=== PATIENT | female | born 1995 | race Caucasian/White ===

== ENCOUNTER → 2018-01-12 09:15 | Outpatient (CLI) | payer OTHER, SELFPAY ==
--- NOTE | 2018-01-12 09:15 | DT_ITS ---
This patient was seen during an EMR downtime January 08, 2018 - January 15, 2018. This patient may have a combination of paper and electronic documentation or all paper documentation. All documentation is viewable within the e-chart portion of [facility] for each patient visit.
[2018-01-16 15:58] LABS: Glucose Challenge Gest 1H 50g 102 mg/dL (70-140)
[2018-01-16 16:07] LABS: Hemoglobin 12.2 g/dl (12.0-15.0); Mean Corpuscular Hgb 31.8 pg (27.0-32.0); Mean Corpuscular Volume 96.4 fL (81-99); Platelet Count 154 K/mm3 (150-450); RBC Distribution Width CV 11.7 % (11.6-14.6); RBC Distribution Width SD 39.8 fl (35.1-43.9); Red Blood Count 3.84 M/mm3 (4.2-5.4); Scan Indicated on CBC? Y/N NO; White Blood Count 8.3 K/mm3 (4.4-11.0)
== END ==
PROVIDERS: Visit Provider Obstetrics & Gynecology
DX: Z34.83 Encounter for supervision of other normal pregnancy, third trimester (principal)
CPT/HCPCS: 36415; 82950; 85027

== ENCOUNTER → 2018-03-14 13:46 | Outpatient (CLI) | payer OTHER, SELFPAY ==
[2018-03-14 18:30] LABS: Group B Strep DNA By PCR Negative (Negative); Internal Control PASS; Probe Check PASS; Specimen Processing Control PASS
== END ==
PROVIDERS: Visit Provider Obstetrics & Gynecology
DX: Z36.85 Encounter for antenatal screening for Streptococcus B (principal)
CPT/HCPCS: 87081; 87653

== ENCOUNTER 2018-03-29 17:10 | Inpatient (IN) | payer OTHER, SELFPAY ==
[2018-03-29 15:51] VITALS: BMI 32.2
[2018-03-29 16:22] LABS: ROM Internal Control Test YES-OK TO RESULT pt. (Internal QC)
[2018-03-29 16:25] LABS: ROM Patient Test POSITIVE (Negative)
[2018-03-29] MEDS: Lactated Ringers 1,000 ML 50 ML IV ×2 (17:00→22:01)
[2018-03-29 17:51] LABS: Hematocrit 38.2 % (37-47); Hemoglobin 12.1 g/dl (12.0-15.0); Mean Corp Hgb Conc 31.7 g/gl (32-36); Mean Corpuscular Hgb 28.9 pg (27.0-32.0); Mean Corpuscular Volume 91.2 fL (81-99); Mean Platelet Vol. 10.6 fl (6.2-12.0); Platelet Count 148 K/mm3 (150-450); RBC Distribution Width SD 42.5 fl (35.1-43.9); Red Blood Count 4.19 M/mm3 (4.2-5.4); White Blood Count 12.3 K/mm3 (4.4-11.0)
[2018-03-29 18:56] LABS: Scan Indicated on CBC? Y/N NO
[2018-03-29] MEDS: Oxytocin 30 units/NS 500 ml 30 UNITS/500 ML IV.SOLN IV (18:56)
--- NOTE | 2018-03-30 01:24 | PCM.PN.BLA ---
Progress Note LABOR PROGRESS NOTE Contractions more intense, /. AVSS GEN - NAD, AAO x 3 SVE 3/75/-3, moderate and midposition FHR 120, moderate variability, + accelerations, no decelerations TOCO 2/10 min A/P: 23yo G1 at 39 1/7wga with Cat I FHR with PROM, Cat I FHR -Continue pitocin as tolerated by mother and fetus -Forebag ruptured -Maternal and statuses reassuring
[2018-03-30] MEDS: Acetaminophen 325 MG Tablet PO (01:26)
[2018-03-30] MEDS: Nalbuphine 10 MG/ML Ampul IV (01:56)
[2018-03-30] MEDS: Ondansetron 4 MG/2 ML Vial IV ×2 (01:57→10:41)
[2018-03-30] MEDS: Lactated Ringers 1,000 ML 50 ML IV ×2 (03:08→06:29)
[2018-03-30] MEDS: fentaNYL-bupivacaine (epidural) 100 ML BAG EPIDURAL ×3 (03:51→12:14)
--- NOTE | 2018-03-30 07:14 | PCM.PN.BLA ---
Progress Note LABOR PROGRESS NOTE SROM comfortable w/ epidural AVSS Pitocin induction after SROM EFM 120-130s with avg variability. Accels noted. UCs q 2-3 min CX; 9.5/100/0 per RN check just done. A/P: Induction of labor after SROM at 39 3/7 wk continue pitocin anticipate .
--- NOTE | 2018-03-30 12:34 | PCM.PN.BLA ---
Progress Note LABOR PROGRESS NOTE Complete and pushing since about 9 am. AVSS Able to see VTX at perineum FM: 140-150s with avg variability, accels. Variables and early decelerations. Category I to II tracing. Progress being made. UCs q 2-4 mins A/P: SROM at 39+ wk, Induction for SROM. Progression to C and P. Continue pushing Anticipate .
[2018-03-30] MEDS: Oxytocin 30 units/NS 500 ml 30 UNITS/500 ML IV.SOLN 334 UNITS IV (13:20)
[2018-03-30] MEDS: Ketorolac 30 MG/ML Syringe IV (13:25)
--- NOTE | 2018-03-30 13:32 | PCM.DCVAG ---
Discharge Diet: No Restrictions Discharge Activity: May Shower, May Take a Tub Bath May resume sexual activity in: 4-6 weeks Additional Activity Instructions:: Nothing in the vagina for 4-6 weeks. You may return to work/school in 6 weeks. Additional Instructions: If you experience any of the following, contact your healthcare provider. Bleeding that soaks a pad every hour for 2 hours Fever 100.4 or higher Unrelieved abdominal pain Problems urinating (including inability to urinate or burning while urinating). Visual changes Severe headache Flu-like symptoms Pain or redness in one of both of your breasts Pain, warmth, tenderness or swelling in your legs, especially the calf area Frequent nausea and vomiting Symptoms of depression or anxiety If you experience any of the following, call 911 or go to the nearest Emergency Room. Chest pain Problems breathing Seizure activity Partial or complete paralysis of a body part, slurred speech, weakness or drooping of the face, or a sudden inability to walk or hold your balance Allergies/Adverse Reactions: Allergies No Known Allergies Allergy (Verified 03/29/18 15:55) Medications to take at Discharge Ondansetron HCl [Zofran] 4 mg PO 03/29/18 Vits [Prenatabs FA] 1 tablet PO DAILY 03/29/18 Please Follow Up With: Paige oCles MD - [phone] When: Call to make an appointment with your doctor in 6 weeks. Primary Care Physician: Lucie Montejo MD [Primary Care Provider] - Test Results: Test results from this visit will be discussed in further detail at your follow-up appointment, if applicable. Proposed Discharge Date: 04/01/18
[2018-03-30] MEDS: Oxytocin 30 units/NS 500 ml 30 UNITS/500 ML IV.SOLN 167 UNITS IV (13:50)
[2018-03-30] MEDS: Methylergonovine 0.2 MG/ML Ampul IM (14:10)
--- NOTE | 2018-03-30 17:02 | PCM.OB.VAG ---
Vaginal Delivery Maternal Presentation: Spontaneous Rupture of Membranes 39 2/7 wk EGA SROM Method of Induction: Pitocin Medical Reason for Induction: Premature Rupture of Membranes Amniotic Membrane Rupture Type: Spontaneous at home Amniotic Fluid Description: Clear Final TWYLA: 04/04/18 Final TWYLA Source: US <20 weeks Gestational age: 39 Weeks and 2 Days Date of Procedure: 03/30/18 Pre-Operative Diagnosis: 39 2/7 wk SROM Post-Operative Diagnosis: Same Surgery/ Procedure Performed: Vacuum Assisted Vaginal Delivery - secondary to maternal exhaustion.. Type of Anesthesia: Epidural Description of Procedure: Vacuum assisted vaginal delivery at +2 station, mckeon in place, Epidural in place and pushing for more than 4 hrs. Single pull on vacuum in green zone resulted in vaginal delivery of a magallon viable male. Ap 8/9 Head delivered KIP. Vacuum removed, no nuchal cord. OP and nares bulb suctioned on perineum. Shoulders delivered easily with R hand at chin reduced at delivery. Infant to maternal abdomen with spontaneous cry. Delayed cord clamped employed. Cord clamped x two and cut. PP exam: 2nd degree vaginal to perineal laceration, repaired to hemostatic, intact under epidural and 1% lidocaine local with 3-0 Vicryl. NO other lacerations noted. Placenta delivered by spont expulsion, expression. 3V cord, normal appearing, intact with trailing membranes. Mild uterine atony noted without hemorrhage, responded to massage, pitocin. Toradol given for maternal CC of cramping pain. Methergine 0.2 mg IM x one given in R thigh as prophylactic measure 2/2 prolonged SROM and pt in labor on Pitocin all night prior to delivery. Presentation: Vertex, KIP Placental Delivery Description: Spontaneous, Expressed Placenta Disposition: [facility] Cord Vessel Description: 3 Vessels Cord Entanglement: None Drain: Mckeon to straight drain Estimated Blood Loss: 300 A gender: Male (1 minute): 8 (5 minute): 9 Episiotomy Description: None Laceration: Midline, Perineal Extension/lac, Vaginal Extension/lac, 2nd degree Medications given after delivery: IV Pitocin, IM Methergin Complications: None
[2018-03-30 20:00] VITALS: BP 129/82; PULSE 97; RESP 18; TEMP 36.4; O2SAT 99
[2018-03-31] VITALS: BP 126/79; PULSE 89; RESP 16; TEMP 36.8; O2SAT 98
[2018-03-31] MEDS: Ibuprofen 600 MG Tablet PO ×2 (07:36→16:52)
[2018-03-31] MEDS: Senna/Docusate Sodium 1 Tablet PO (07:37)
[2018-03-31 08:00] VITALS: BP 122/78; PULSE 88; RESP 18; TEMP 36.1
--- NOTE | 2018-03-31 09:33 | PCM.PN.OB ---
Subjective: Patient without complaints. Tolerating diet well. Minimal vaginal bleeding. Breast-feeding going well. Baby with occasional low blood sugar. - Physical Exam Vital Signs Temp Pulse Resp BP Pulse Ox 98.3 F 89 16 126/79 H 98 03/31/18 00:00 03/31/18 00:00 03/31/18 00:00 03/31/18 00:00 03/31/18 00:00 Oxygen Delivery Method Room Air Weight: 176 lb 2.389 oz Body Mass Index (BMI) 32.2 Intake and Output for Last 24 Hours 03/29/18 03/30/18 03/31/18 23:59 23:59 23:59 Intake Total 6772 / 6772 Output Total 600 / 600 1675 / 1675 1700 / 1700 Balance -600 / -600 5097 / 5097 -1700 / -1700 Laboratory Tests Past 24 Hrs 03/30/18 07:40 Blood Type A POSITIVE Antibody Screen NEGATIVE Medical Necessity - Tobacco Use Smoking Status: Never smoker Assessment/Plan Doing well. Continuing present care.
[2018-03-31 12:00] VITALS: BP 119/80; PULSE 82; RESP 18; TEMP 36.2
[2018-03-31] MEDS: Acetaminophen 500 MG Tablet 1000 MG PO ×2 (12:48→22:01)
[2018-03-31] MEDS: Prenatal Vits Tablet 1 TABLET PO (12:49)
[2018-03-31 16:00] VITALS: BP 125/80; PULSE 93; RESP 18; TEMP 36.1
[2018-03-31 20:25] VITALS: BP 132/86; PULSE 88; RESP 16; TEMP 36.4; O2SAT 99
[2018-04-01 03:00] VITALS: BP 111/71; PULSE 74; RESP 16; TEMP 36.6; O2SAT 100
[2018-04-01 08:30] VITALS: BP 120/80; PULSE 88; RESP 18; TEMP 36.3
[2018-04-01] MEDS: Senna/Docusate Sodium 1 Tablet PO (08:31)
[2018-04-01] MEDS: Ibuprofen 600 MG Tablet PO (08:32)
[2018-04-01] MEDS: Prenatal Vits Tablet 1 TABLET PO (08:33)
--- NOTE | 2018-04-01 11:05 | PCM.PN.OB ---
Subjective: Patient without complaints. Breast-feeding going well. Ready to go home. - Physical Exam Vital Signs Temp Pulse Resp BP Pulse Ox 97.4 F L 88 18 120/80 100 04/01/18 08:30 04/01/18 08:30 04/01/18 08:30 04/01/18 08:30 04/01/18 03:00 Oxygen Delivery Method Room Air Weight: 176 lb 2.389 oz Body Mass Index (BMI) 32.2 Intake and Output for Last 24 Hours 03/30/18 03/31/18 04/01/18 23:59 23:59 23:59 Intake Total 6772 / 6772 Output Total 1675 / 1675 1700 / 1700 Balance 5097 / 5097 -1700 / -1700 Medical Necessity - Tobacco Use Smoking Status: Never smoker Assessment/Plan Doing well day #2. Will release to home with routine instructions.
[2018-04-01 11:45] VITALS: BP 120/80; PULSE 88; RESP 18; TEMP 36.3
== END 2018-04-01 11:45 | disposition home or self-care (01) | DRG 774 ==
LOC: WPOUT 17:10 → WP 17:17
PROVIDERS: Obstetrics & Gynecology; Admitting Provider Obstetrics & Gynecology; Family Provider Family Medicine; PCP Family Medicine; Visit Provider Obstetrics & Gynecology
DX: O42.92 Full-term premature rupture of membranes, unspecified as to length of time between rupture and onset of labor (principal); O72.1 Other immediate postpartum hemorrhage; O75.81 Maternal exhaustion complicating labor and delivery; O70.1 Second degree perineal laceration during delivery; O76 Abnormality in fetal heart rate and rhythm complicating labor and delivery; Z3A.39 39 weeks gestation of pregnancy; Z37.0 Single live birth
CPT/HCPCS: 59025; 59050; 84112; 85027; 86850; 86900; 99218; J7120; G0378; J2405

== ENCOUNTER → 2019-04-16 13:42 | Outpatient (CLI) | payer OTHER, SELFPAY | PROVIDERS: Visit Provider Obstetrics & Gynecology | DX: Z34.81 Encounter for supervision of other normal pregnancy, first trimester (principal); Z12.4 Encounter for screening for malignant neoplasm of cervix; Z11.3 Encounter for screening for infections with a predominantly sexual mode of transmission ==

== ENCOUNTER → 2019-04-17 09:13 | Outpatient (CLI) | payer OTHER, SELFPAY ==
[2019-04-17 11:31] LABS: hCG Titer Quant., Serum 1543 mIU/mL (1-3)
== END ==
PROVIDERS: Visit Provider Obstetrics & Gynecology
DX: O20.0 Threatened abortion (principal)
CPT/HCPCS: 36415; 84702

== ENCOUNTER → 2019-04-19 09:16 | Outpatient (CLI) | payer OTHER, SELFPAY ==
[2019-04-19 11:24] LABS: hCG Titer Quant., Serum 350 mIU/mL (1-3)
== END ==
PROVIDERS: Visit Provider Obstetrics & Gynecology
DX: O20.0 Threatened abortion (principal); Z3A.00 Weeks of gestation of pregnancy not specified
CPT/HCPCS: 36415; 84702

== ENCOUNTER → 2020-09-22 13:24 | Outpatient (CLI) | payer OTHER, SELFPAY ==
[2020-09-25 03:07] LABS: Chlamydia By Nucleic Acid AMP Negative (Negative)
[2020-09-25 11:13] LABS: Gonococcus By Nucleic Acid AMP Negative (Negative)
== END ==
PROVIDERS: Visit Provider Student in an Organized Health Care Education/Training Program
DX: Z32.01 Encounter for pregnancy test, result positive (principal); Z11.3 Encounter for screening for infections with a predominantly sexual mode of transmission
CPT/HCPCS: 87491; 87591

== ENCOUNTER → 2020-10-06 10:09 | Outpatient (CLI) | payer OTHER, SELFPAY ==
[2020-10-06 11:34] LABS: hCG Titer Quant., Serum 3 mIU/mL (1-3)
[2020-10-06 11:40] LABS: Free T3 2.9 pg/mL (2.18-3.98); T4 Free Direct 0.88 ng/dL (0.76-1.46); Thyroid Stim Hormone (TSH) 2.21 uIU/mL (0.358-3.74)
[2020-10-08 05:06] LABS: Dilute Prothrombin Time (dPT) 35.1 sec (0.0-55.0); Dilute Russell Viper Venom 40.5 sec (0.0-47.0); PTT-LA 33.7 sec (0.0-51.9); Thrombin Time 16.1 sec (0.0-23.0); dPT Confirm Ratio 0.98 Ratio (0.00-1.40)
[2020-10-08 08:30] LABS: Anti-Cardiolipin Ab, IgA, Qn < 9 APL U/mL (0-11); Anti-Cardiolipin Ab, IgG, Qn < 9 GPL U/mL (0-14); Anti-Cardiolipin Ab, IgM, Qn 13 MPL U/mL (0-12); Beta-2-Glycoprotein I IgA <9 (0-25); Beta-2-Glycoprotein I IgG <9 (0-20); Beta-2-Glycoprotein I IgM <9 (0-32)
[2020-10-08 08:47] LABS: Interpretation Comment: (.)
== END ==
PROVIDERS: Visit Provider Student in an Organized Health Care Education/Training Program
DX: O03.9 Complete or unspecified spontaneous abortion without complication (principal); O26.20 Pregnancy care for patient with recurrent pregnancy loss, unspecified trimester; Z3A.00 Weeks of gestation of pregnancy not specified
CPT/HCPCS: 36415; 84439; 84443; 84481; 84702; 86146; 86147

== ENCOUNTER → 2020-11-12 16:23 | Outpatient (CLI) | payer OTHER, SELFPAY ==
[2020-11-12 17:59] LABS: hCG Titer Quant., Serum 21 mIU/mL (1-3)
== END ==
PROVIDERS: Visit Provider Student in an Organized Health Care Education/Training Program
DX: O20.0 Threatened abortion (principal)
CPT/HCPCS: 36415; 84702

== ENCOUNTER → 2020-11-14 09:22 | Outpatient (CLI) | payer OTHER, SELFPAY ==
[2020-11-14 10:35] LABS: hCG Titer Quant., Serum 7 mIU/mL (1-3)
== END ==
PROVIDERS: PCP Family Medicine; Visit Provider Student in an Organized Health Care Education/Training Program
DX: O20.0 Threatened abortion (principal); Z3A.00 Weeks of gestation of pregnancy not specified
CPT/HCPCS: 36415; 84702

== ENCOUNTER → 2021-01-14 10:18 | Outpatient (CLI) | payer OTHER, SELFPAY ==
[2021-01-16 10:06] LABS: Beta-2-Microglobulin, S 1.3 mg/L (0.6-2.4)
[2021-01-16 16:07] LABS: Dilute Prothrombin Time (dPT) 34.5 sec (0.0-55.0); Dilute Russell Viper Venom 40.5 sec (0.0-47.0); Thrombin Time 15.7 sec (0.0-23.0); dPT Confirm Ratio 1.08 Ratio (0.00-1.40)
[2021-01-16 20:12] LABS: Anti-Cardiolipin Ab, IgG, Qn < 9 GPL U/mL (0-14); Anti-Cardiolipin Ab, IgM, Qn < 9 MPL U/mL (0-12); Interpretation Comment: (.)
== END ==
PROVIDERS: PCP Family Medicine; Visit Provider Student in an Organized Health Care Education/Training Program
DX: N96 Recurrent pregnancy loss (principal)
CPT/HCPCS: 36415; 82232; 86147

== ENCOUNTER → 2021-06-10 11:42 | Outpatient (CLI) | payer OTHER, SELFPAY ==
--- NOTE | 2021-06-10 11:50 | RAD_ITS ---
STUDY: HYSTEROSALPINGOGRAM. REASON FOR EXAM: Female, 26 years old. RECURRENT LOSS, TUBAL PATENCY FLUOROSCOPY TIME (if supplied): ( 59 seconds ) minutes/seconds. 2 images were obtained. TECHNIQUE: Hysterosalpingogram was performed by the oil field equipment mechanic. Imaging was obtained. COMPARISON: None. FINDINGS: The uterus is unremarkable. Both fallopian tubes are patent and there is evidence of free spill. RAD/Salpingogram IMPRESSION: Patency of both fallopian tubes. The uterus is unremarkable. Electronically Signed: Adriano Gregorio MD at 13:16 EDT , Service support ,
== END ==
PROVIDERS: PCP Family Medicine; Referring Provider Student in an Organized Health Care Education/Training Program; Visit Provider Student in an Organized Health Care Education/Training Program
DX: Z31.41 Encounter for fertility testing (principal); N96 Recurrent pregnancy loss
CPT/HCPCS: 58340; 74740; Q9967

== ENCOUNTER 2021-10-05 13:44 | Outpatient (CLI) | payer OTHER, SELFPAY ==
[2021-10-05 15:44] LABS: Absolute Lymphocyte Count 2.23 X10^3/uL (0.83-4.51); Absolute Neutrophil Count 6.8 X10^3/uL (2.0-7.7); Basophil# 0.02 X10^3/uL; Basophil% 0.2 % (0-1); Eosinophil# 0.07 X10^3/uL; Eosinophils% 0.7 % (0-5); Hematocrit 40.2 % (37-47); Hemoglobin 13.4 g/dL (12.0-15.0); Lymphocyte # 2.23 X10^3/ul (0.83-4.51); Lymphocyte % 23.1 % (19-41); Mean Corp Hgb Conc 33.3 g/dL (32-36); Mean Corpuscular Hgb 30.5 pg (27.0-32.0); Mean Corpuscular Volume 91.6 fL (81-99); Mean Platelet Vol. 10.4 fl (6.2-12.0); Monocyte# 0.52 X10^3/uL; Monocyte% 5.4 % (0-10); NRBC Flagged by Analyzer 0 % (0-5); Neutrophil # 6.77 X10^3/uL (2.7-7.7); Neutrophil % 70.2 % (47-70); Platelet Count 263 K/mm3 (150-450); RBC Distribution Width CV 11.7 % (11.6-14.6); RBC Distribution Width SD 39.5 fl (35.1-43.9); Red Blood Count 4.39 M/mm3 (4.2-5.4); White Blood Count 9.7 K/mm3 (4.4-11.0)
[2021-10-06 09:25] LABS: HIV - WCH Non-Reactive (Nonreactive); Hepatitis B Surface Antigen Non-Reactive (Nonreactive); Hepatitis C Antibody Non-Reactive (Nonreactive); Rubella IgG Reactive (Nonreactive); Syphilis Antibodies Non-reactive
[2021-10-07 21:07] LABS: Chlamydia By Nucleic Acid AMP Negative (Negative)
[2021-10-07 21:17] LABS: Gonococcus By Nucleic Acid AMP Negative (Negative)
[2021-10-11 19:05] LABS: HPV Reflexed? NOT INDICATED
== END 2021-10-05 23:59 | disposition home or self-care (01) ==
LOC: WOBLAB 13:45
PROVIDERS: PCP Family Medicine; Visit Provider Student in an Organized Health Care Education/Training Program
DX: Z34.81 Encounter for supervision of other normal pregnancy, first trimester (principal); Z12.4 Encounter for screening for malignant neoplasm of cervix; Z11.3 Encounter for screening for infections with a predominantly sexual mode of transmission
CPT/HCPCS: 36415; 85025; 86703; 86762; 86780; 86803; 87086; 87088; 87340; 87491; 87591; 88175; G0145

== ENCOUNTER 2021-11-15 16:15 | Outpatient (CLI) | payer OTHER, SELFPAY ==
[2021-11-15 17:01] LABS: Glucose Challenge Gest 1H 50g 155 mg/dL (70-140)
== END 2021-11-15 23:59 | disposition home or self-care (01) ==
LOC: WOBLAB 16:20
PROVIDERS: PCP Family Medicine; Visit Provider Student in an Organized Health Care Education/Training Program
DX: Z34.81 Encounter for supervision of other normal pregnancy, first trimester (principal)
CPT/HCPCS: 36415; 82950

== ENCOUNTER → 2021-12-02 | Outpatient (CLI) | payer OTHER, SELFPAY ==
[2021-12-02 10:33] LABS: Glucose GTT-Gestation. Fasting 86 mg/dL (<105)
== END | disposition home or self-care (01) ==
LOC: WOBLAB 08:52
PROVIDERS: PCP Family Medicine; Visit Provider Student in an Organized Health Care Education/Training Program
DX: O24.912 Unspecified diabetes mellitus in pregnancy, second trimester (principal)
CPT/HCPCS: 36415; 82951; 82952

== ENCOUNTER → 2021-12-07 | Outpatient (CLI) | payer OTHER, SELFPAY ==
[2021-12-07 10:48] LABS: Glucose GTT-Gestational 1 Hr 112 mg/dL (<190)
[2021-12-07 11:10] LABS: Glucose GTT-Gestation. Fasting 78 mg/dL (<105)
[2021-12-07 12:32] LABS: Glucose GTT-Gestational 2 Hr 107 mg/dL (<165)
[2021-12-07 12:32] LABS: Glucose GTT-Gestational 3 Hr 93 L (<145)
== END | disposition home or self-care (01) ==
PROVIDERS: PCP Family Medicine; Visit Provider Student in an Organized Health Care Education/Training Program
DX: O24.912 Unspecified diabetes mellitus in pregnancy, second trimester (principal); Z3A.00 Weeks of gestation of pregnancy not specified
CPT/HCPCS: 36415; 82951; 82952

== ENCOUNTER → 2022-03-03 | Outpatient (CLI) | payer OTHER, SELFPAY ==
[2022-03-03 07:40] LABS: Glucose GTT-Gestation. Fasting 95 mg/dL (<105)
== END | disposition home or self-care (01) ==
PROVIDERS: PCP Family Medicine; Referring Provider Student in an Organized Health Care Education/Training Program; Visit Provider Student in an Organized Health Care Education/Training Program
DX: O24.912 Unspecified diabetes mellitus in pregnancy, second trimester (principal); Z3A.00 Weeks of gestation of pregnancy not specified
CPT/HCPCS: 36415; 82951; 82952

== ENCOUNTER → 2022-05-13 | Outpatient (CLI) | payer OTHER, SELFPAY | END | disposition home or self-care (01) | LOC: LABSPEC 12:28 | PROVIDERS: PCP Family Medicine; Visit Provider Student in an Organized Health Care Education/Training Program | DX: Z36.85 Encounter for antenatal screening for Streptococcus B (principal) | CPT/HCPCS: 87081 ==

== ENCOUNTER 2022-06-10 07:00 | Inpatient (IN) | payer OTHER, SELFPAY ==
[2022-06-10] VITALS (58 sets, daily range): BP systolic 120–160; BP diastolic 63–98; PULSE 81–123; RESP 16; TEMP 36.1–36.6; O2SAT 93–100; BMI 36.1
[2022-06-10] MEDS: Lactated Ringers 1,000 ML 50 ML IV (08:15)
[2022-06-10] MEDS: Oxytocin 15 Units/NS 250ml 15 UNITS/250 ML IV.SOLN 2 UNITS IV (08:32)
[2022-06-10 08:39] LABS: Absolute Lymphocyte Count 1.49 X10^3/uL (0.83-4.51); Absolute Neutrophil Count 7.8 X10^3/uL (2.0-7.7); Basophil# 0.02 X10^3/uL; Basophil% 0.2 % (0-1); Eosinophil# 0.04 X10^3/uL; Eosinophils% 0.4 % (0-5); Hematocrit 34.2 % (37-47); Lymphocyte # 1.49 X10^3/ul (0.83-4.51); Lymphocyte % 14.8 % (19-41); Mean Corp Hgb Conc 32.2 g/dL (32-36); Mean Corpuscular Hgb 28.3 pg (27.0-32.0); Mean Corpuscular Volume 87.9 fL (81-99); Mean Platelet Vol. 10.6 fl (6.2-12.0); NRBC Flagged by Analyzer 0 % (0-5); Neutrophil # 7.77 X10^3/uL (2.7-7.7); Neutrophil % 77.4 % (47-70); Platelet Count 135 K/mm3 (150-450); RBC Distribution Width CV 13.6 % (11.6-14.6); RBC Distribution Width SD 43.6 fl (35.1-43.9); Red Blood Count 3.89 M/mm3 (4.2-5.4)
--- NOTE | 2022-06-10 12:29 | PCM.HP.BLA ---
History and Physical Date of Admission: 06/10/22 Chief complaint: Induction of labor at term History present illness: 27-year-old G5, P1 at 40 weeks and 0 days with TWYLA 06/10/2022 arrives for induction of labor at term. Denies headache, visual changes, chest pain, shortness of breath, nausea vomit, right upper quadrant pain. Patient states good movement. Obstetric history: G1: 39-week vacuum-assisted vaginal delivery 7 pounds 1 ounce G2 3 4 SAB G5: Current Past medical history: None Medications: vitamin Allergies: No known drug allergies Past surgical history: Eustachian tube, adenoids, wisdom teeth extraction Social history: Denies smoking, alcohol use, drug use Family history: Denies history DVT or PE Review of systems: Besides above pertinent positives a full review of systems was performed and found be negative Physical exam: Vitals: Blood pressure 120/73 pulse 93 temperature 97.1 ?F SPO2 100% on room air General: Normal-appearing no acute distress HEENT: Normocephalic/atraumatic no cervical lymphadenopathy Cardiac/respiratory: No accessory muscles, nonlabored breathing Abdomen: Soft, nontender, gravid Pelvic exam: Cervical exam 3-4/70/-3. AROM scant fluid. FSE placed Extremities: No peripheral edema normal peripheral pulses Psych: Normal affect normal demeanor nonpressured speech Labs: White blood cell count 10.0 hemoglobin 11.0 hematocrit 34.2% platelets 135. Blood type A+ antibody negative Assessment plan: 27-year-old G5, P1 at 40 weeks for induction of labor at term Admit labor and delivery CEFM GBS negative Pitocin induction, AROM Routine orders Anesthesia to see
[2022-06-10] MEDS: LACTATED RINGERS 500 ML 999 ML IV (13:28)
[2022-06-10] MEDS: fentaNYL-bupivacaine (epidural) 100 ML BAG EPIDURAL (14:25)
[2022-06-10] MEDS: Ondansetron 4 MG/2 ML Vial IV (18:12)
[2022-06-10] MEDS: 0.9% Saline Lock 10 ML Syringe IV (18:12)
[2022-06-10] MEDS: Lactated Ringers 1,000 ML 200 ML IV (18:20)
--- NOTE | 2022-06-10 18:58 | EX.PCM.OBRPT ---
Vaginal Delivery Operative Information Date of Procedure: 06/10/22 Pre-Operative Diagnosis: [place] intrauterine Post-Operative Diagnosis: [place] intrauterine Surgery / Procedure Performed: Spontaneous Vaginal Delivery Type of Anesthesia: Epidural Estimated Blood Loss: 300cc Findings Description of Procedure: Spontaneous vaginal delivery of viable infant male. No nuchal cord. Baby to mom. Cord clamped and cut. Spontaneous delivery of placenta. No lacerations. Infant A Gender: Male (1 minute): 9 (5 minute): 9
[2022-06-10] MEDS: Oxytocin 15 Units/NS 250ml 15 UNITS/250 ML IV.SOLN 83 UNITS IV (19:30)
--- NOTE | 2022-06-10 22:54 | NURSING ---
pt is CPR certified and declines CPR Ipad.
[2022-06-11] VITALS (7 sets, daily range): BP systolic 119–136; BP diastolic 76–88; PULSE 82–105; RESP 16; TEMP 36.1–36.4; O2SAT 98–99
--- NOTE | 2022-06-11 06:59 | PCM.PN.OB ---
Subjective Subjective day 1. Lochia minimal. Breast-feeding going well. Objective Data Objective Data Vital Signs: Vital Signs Temp Pulse Resp BP Pulse Ox O2 Del Method 97 F L 84 16 119/81 H 98 Room Air 06/11/22 04:35 06/11/22 04:35 06/11/22 04:35 06/11/22 04:35 06/11/22 04:35 06/11/22 04:35 Oxygen Delivery Method Room Air Weight: 89.6 kg Body Mass Index (BMI) 36.1 Intake & Output: Intake and Output for Last 24 Hours 06/09/22 06/10/22 06/11/22 23:59 23:59 23:59 Intake Total 2072.33 / 2072.33 Output Total 800 / 800 Balance 2072. / 2072. -800 / -800 Lab / Micro Data Result Diagrams: 06/10/22 08:15 Labs: Laboratory Results - last 24 hr 06/10/22 08:15: WBC 10.0, RBC 3.89 L, Hgb 11.0 L, Hct 34.2 L, MCV 87.9, MCH 28.3, MCHC 32.2, RDW Std Deviation 43.6, RDW Coeff of Kendra 13.6, Plt Count 135 L, MPV 10.6, Immature Gran % (Auto) 1.200 H, Neut % (Auto) 77.4 H, Lymph % (Auto) 14.8 L, [place] % (Auto) 6.0, Eos % (Auto) 0.4, Baso % (Auto) 0.2, Absolute Neuts (auto) 7.8 H, Absolute Lymphs (auto) 1.49, Nucleated RBC % 0 06/10/22 08:15: Blood Type A POSITIVE, Antibody Screen NEGATIVE Micro: Microbiology 06/10/22 08:15 Nasal Secretion SARS-CoV-2 Antigen (Rapid) - Final Physical Exam Const alert, oriented x3 and no apparent distress HEENT normocephalic Head and Scalp: atraumatic Neck full ROM Resp normal respiratory effort Cardio regular rate GI normal to inspection, nondistended, normoactive bowel sounds GI Narrative: Uterus 2 cm below umbilicus Back/Spine normal ROM Extremity normal to inspection Extremity Narrative: Minimal pedal edema Neuro no focal motor deficits and no sensory deficits noted Psych mental status grossly normal and affect normal Assessment & Plan (1) Vaginal delivery: PLAN: day 1 status post . Breast-feeding. Possibly discharge home this evening.
--- NOTE | 2022-06-11 07:00 | DCINST_ITS ---
Discharge Instructions Diet Discharge Diet: No restrictions Activity Discharge Activity: Return to Normal Activity and May Shower May resume sexual activity in: 4-6 weeks Weight Bearing Status: Weight bearing as tolerated Lifting Restrictions: No greater than 25 pounds Dressing / Incision Call your doctor if you observe: Fever of 101 or Higher, Change in Color, Inability to urinate, Using more than 1 pad per hour, Shortness of breath, Dizziness, Swelling in the ankles, Chest pain and Calf discomfort Follow Up Care Please Follow Up With: Roseanne Hyatt DO When: 4- 6-week visit Test Results: Test results from this visit will be discussed in further detail at your follow- up appointment, if applicable. Discharge Plan Admission Admit Date/Time: 06/10/22 07:00 Primary Reason for Your Visit: Vaginal Delivery Attending Provider: oRseanne Hyatt Primary Care Provider: Lucie Montejo Discharge Orders/Prescriptions Prescriptions: No Action Prenatabs FA 1 TABLET tablet 1 tab PO DAILY promethazine 12.5 mg tablet 12.5 mg PO Q6H PRN (Reason: Nausea) Label Comments: TAKE 1 TABLET BY MOUTH EVERY 6 HOURS NEEDED FOR NAUSEA AND VOMITING Referrals / Follow Up: Lucie Montejo MD [Primary Care Provider] - Disposition Disposition (needs filled in before D/C Order can be placed): Home, Self Care
== END 2022-06-11 19:20 | disposition home or self-care (01) | DRG 807 ==
PROVIDERS: Obstetrics & Gynecology; Admitting Provider Student in an Organized Health Care Education/Training Program; PCP Family Medicine; Referring Provider Student in an Organized Health Care Education/Training Program; Visit Provider Student in an Organized Health Care Education/Training Program
DX: O80 Encounter for full-term uncomplicated delivery (principal); Z37.0 Single live birth; Z3A.40 40 weeks gestation of pregnancy
CPT/HCPCS: 59025; 59050; 85025; 86850; 86900; 86901; 87426; 99218; J7120; A4216; G0378; J2405

== ENCOUNTER → 2023-09-28 | Outpatient (CLI) | payer OTHER, SELFPAY ==
[2023-09-28 18:01] LABS: hCG Titer Quant., Serum 5857 mIU/mL (1-3)
--- OUTSIDE RECORDS SUMMARY | 2023-09-28 19:24 | XMS RPT_ITS | CCD ---
Author Name Unknown Address [address] [place] [address] Organization [facility] Results Test Name Value Interpretation Reference Range Facil ity Summary Purpose Family History No Family History Records Found Advance Directives No Advanced Directives Records Found Additional Source Comments INFORMATION SOURCE (unrecogn ized section and content) FOR RECORDS PERTAINING TO PATIENTS WHO ARE OR HAVE BEEN ENROLLED IN A CHEMICAL DEPENDENCY/SUBSTANCEABUSE PROGRAM, SOME INFORMATION MAY BE OMITTED. This clinical summary was aggregated from multiple sources. Caution should be exercised in using it in the provision of clinical care. This summary normalizes information from multiple sources, and as a consequence, information in this document may materially change the coding, format and clinical context of patient data. In addition, data may be omitted in some cases. CLINICAL DECISIONS SHOULD BE BASED ON THE PRIMARY CLINICAL RECORDS. [employer] provides no warranty or guarantee of the accuracy or completeness of information in this document.
[2023-10-03 21:07] LABS: Chlamydia By Nucleic Acid AMP Negative (Negative); Gonococcus By Nucleic Acid AMP Negative (Negative)
== END | disposition home or self-care (01) ==
PROVIDERS: Registered Nurse; PCP Family Medicine; Referring Provider Advanced Practice Midwife; Visit Provider Advanced Practice Midwife
DX: O09.90 Supervision of high risk pregnancy, unspecified, unspecified trimester (principal); Z3A.00 Weeks of gestation of pregnancy not specified
CPT/HCPCS: 36415; 84702; 87086; 87088; 87491; 87591

== ENCOUNTER → 2023-10-02 | Outpatient (CLI) | payer OTHER, SELFPAY ==
[2023-10-02 18:02] LABS: hCG Titer Quant., Serum 14695 mIU/mL (1-3)
--- OUTSIDE RECORDS SUMMARY | 2023-10-03 00:04 | XMS RPT_ITS | CCD ---
Author Name Unknown Address [address] [place] [address] Organization [facility] Results Test Name Value Interpretation [...] BE BASED ON THE PRIMARY CLINICAL RECORDS. [employer] provides no warranty or guarantee of the accuracy or completeness of information in this document.
== END | disposition home or self-care (01) ==
LOC: LAB 16:34
PROVIDERS: PCP Family Medicine; Referring Provider Advanced Practice Midwife; Visit Provider Advanced Practice Midwife
DX: O09.90 Supervision of high risk pregnancy, unspecified, unspecified trimester (principal); Z3A.00 Weeks of gestation of pregnancy not specified
CPT/HCPCS: 36415; 84702

== ENCOUNTER → 2023-12-27 | Outpatient (CLI) | payer OTHER, SELFPAY ==
[2023-12-27 15:49] LABS: Absolute Lymphocyte Count 1.84 X10^3/uL (0.83-4.51); Absolute Neutrophil Count 8.6 X10^3/uL (2.0-7.7); Basophil# 0.02 X10^3/uL; Basophil% 0.2 % (0-1); Eosinophil# 0.07 X10^3/uL; Eosinophils% 0.6 % (0-5); Hematocrit 40.2 % (37-47); Hemoglobin 13.3 g/dL (12.0-15.0); Lymphocyte # 1.84 X10^3/ul (0.83-4.51); Lymphocyte % 16.5 % (19-41); Mean Corp Hgb Conc 33.1 g/dL (32-36); Mean Corpuscular Hgb 30.4 pg (27.0-32.0); Mean Platelet Vol. 10.4 fl (6.2-12.0); Monocyte# 0.56 X10^3/uL; NRBC Flagged by Analyzer 0 % (0-5); Neutrophil # 8.55 X10^3/uL (2.7-7.7); Platelet Count 193 K/mm3 (150-450); RBC Distribution Width CV 12.2 % (11.6-14.6); RBC Distribution Width SD 41.6 fl (35.1-43.9); Red Blood Count 4.37 M/mm3 (4.2-5.4); White Blood Count 11.1 K/mm3 (4.4-11.0)
[2023-12-27 16:37] LABS: Hemoglobin A1c 4.9 % (3.8-5.6)
[2023-12-27 17:40] LABS: HIV - WCH Non-Reactive (Nonreactive); Hepatitis B Surface Antigen Non-Reactive (Nonreactive); Hepatitis C Antibody Non-Reactive (Nonreactive); Rubella IgG Reactive (Nonreactive); Syphilis Antibodies Non-reactive
== END | disposition home or self-care (01) ==
LOC: LAB 14:20
PROVIDERS: Nurse Practitioner Women's Health; PCP Family Medicine; Referring Provider Advanced Practice Midwife; Visit Provider Advanced Practice Midwife
DX: O09.92 Supervision of high risk pregnancy, unspecified, second trimester (principal); Z3A.00 Weeks of gestation of pregnancy not specified
CPT/HCPCS: 36415; 83036; 85025; 86703; 86762; 86780; 86803; 86850; 86900; 86901; 87340

== ENCOUNTER → 2024-02-29 | Outpatient (CLI) | payer OTHER, SELFPAY ==
[2024-02-29 08:06] LABS: Absolute Lymphocyte Count 1.54 X10^3/uL (0.83-4.51); Absolute Neutrophil Count 7.9 X10^3/uL (2.0-7.7); Basophil# 0.02 X10^3/uL; Basophil% 0.2 % (0-1); Eosinophil# 0.08 X10^3/uL; Eosinophils% 0.8 % (0-5); Hematocrit 35.6 % (37-47); Hemoglobin 11.7 g/dL (12.0-15.0); Lymphocyte # 1.54 X10^3/ul (0.83-4.51); Lymphocyte % 15.3 % (19-41); Mean Corp Hgb Conc 32.9 g/dL (32-36); Mean Corpuscular Hgb 30.2 pg (27.0-32.0); Mean Platelet Vol. 9.8 fl (6.2-12.0); Monocyte# 0.43 X10^3/uL; Monocyte% 4.3 % (0-10); NRBC Flagged by Analyzer 0 % (0-5); Neutrophil # 7.89 X10^3/uL (2.7-7.7); Neutrophil % 78.3 % (47-70); Platelet Count 157 K/mm3 (150-450); RBC Distribution Width CV 13.1 % (11.6-14.6); RBC Distribution Width SD 42.9 fl (35.1-43.9); Red Blood Count 3.87 M/mm3 (4.2-5.4); White Blood Count 10.1 K/mm3 (4.4-11.0)
[2024-02-29 08:39] LABS: Glucose Challenge Gest 1H 50g 193 mg/dL (70-140)
[2024-02-29 09:41] LABS: HIV - WCH Non-Reactive (Nonreactive); Syphilis Antibodies Non-reactive
== END | disposition home or self-care (01) ==
PROVIDERS: PCP Family Medicine; Referring Provider Obstetrics & Gynecology; Visit Provider Obstetrics & Gynecology
DX: Z34.92 Encounter for supervision of normal pregnancy, unspecified, second trimester (principal); Z3A.22 22 weeks gestation of pregnancy
CPT/HCPCS: 36415; 82950; 85025; 86703; 86780

== ENCOUNTER → 2024-05-02 | Outpatient (CLI) | payer OTHER, SELFPAY | END | disposition home or self-care (01) | LOC: LABSPEC 11:49 | PROVIDERS: PCP Family Medicine; Referring Provider Obstetrics & Gynecology; Visit Provider Obstetrics & Gynecology | DX: O09.92 Supervision of high risk pregnancy, unspecified, second trimester (principal); Z3A.00 Weeks of gestation of pregnancy not specified | CPT/HCPCS: 87081 ==

== ENCOUNTER 2024-05-18 10:00 | Outpatient (CLI) | payer OTHER, SELFPAY ==
[2024-05-18 10:15] VITALS: BP 127/84; PULSE 88; PULSE 89; RESP 14; TEMP 36.4; O2SAT 98
[2024-05-18 10:27] VITALS: BMI 34.7
[2024-05-18 10:31] VITALS: BP 119/76; PULSE 85
[2024-05-18 11:21] LABS: Hemoglobin 11.5 g/dL (12.0-15.0); Mean Corp Hgb Conc 31.1 g/dL (32-36); Mean Corpuscular Hgb 26.9 pg (27.0-32.0); Mean Corpuscular Volume 86.7 fL (81-99); Platelet Count 139 K/mm3 (150-450); RBC Distribution Width CV 14.1 % (11.6-14.6); RBC Distribution Width SD 43.8 fl (35.1-43.9); Red Blood Count 4.27 M/mm3 (4.2-5.4); White Blood Count 8.5 K/mm3 (4.4-11.0)
[2024-05-18 11:45] LABS: ALB/GLOB Ratio 0.7 RATIO (0.9-2.4); AST(SGOT) 14 U/L (15-37); Alanine Aminotransfer ALT/SGPT 13 U/L (13-56); Alkaline Phosphatase 254 U/L (45-117); Anion Gap 6 (5-15); BUN 7 mg/dL (7-18); BUN/Creat Ratio 16.5 RATIO (10-20); Calcium,Total 9.3 mg/dL (8.5-10.1); Chloride 108 mmol/L (98-107); Creatinine, Serum 0.42 mg/dL (0.55-1.02); EST Glomerular Filtration Rate 185 mL/min (>60); Est Glom Filt Rate - Afr Amer 224 mL/min (>60); Estimated Creatinine Clearance 205.28 ml/min; Globulin 4.1 g/dL (2.2-4.2); Glucose 69 mg/dL (74-106); Potassium 3.5 mmol/L (3.5-5.1); Protein, Total 7.1 g/dL (6.4-8.2); Sodium Level 137 mmol/L (136-145)
[2024-05-18 11:47] LABS: Protein:Creat Ratio 240 mg/g CRE (0-200)
[2024-05-18 12:37] VITALS: BP 134/81; PULSE 81
[2024-05-18 12:47] VITALS: BP 114/64; PULSE 89
[2024-05-18 14:45] LABS: Uric Acid 3.5 mg/dL (2.6-6.0)
--- NOTE | 2024-05-21 14:42 | OB.TRI.PN_ITS ---
Progress Notes Date of Service: 05/18/24 Progress Note: Patient presents for triage evaluation secondary to contractions, headache FHT: 135 Moderate variability reactive no decelerations category I tracing [place]: irreuglar Contractions Assessment and plan: false labor headache improved with tylenol, labs drawn n ormal bps but gestational thrombocytopenia, repeat labs next week Reactive NST, reassuring maternal and status patient discharged to home to follow-up as scheduled reviewed pree precautions. See problem list details for additional plan information. Laboratory Studies: Laboratory Tests 05/18/24 05/18/24 05/18/24 Range/Units 11:05 11:05 11:05 WBC (4.4-11.0) K/mm3 RBC (4.2-5.4) M/mm3 Hgb (12.0-15.0) g/dL Hct (37-47) % MCV (81-99) fL MCH (27.0-32.0) pg MCHC (32-36) g/dL RDW Std Deviation (35.1-43.9) fl RDW Coeff of Kendra (11.6-14.6) % Plt Count (150-450) K/mm3 MPV (6.2-12.0) fl Sodium (136-145) mmol/L Potassium (3.5-5.1) mmol/L Chloride (98-107) mmol/L Carbon Dioxide (21.0-32.0) mmol/L Anion Gap (5-15) BUN (7-18) mg/dL Creatinine Estim Creat Clear Calc ml/min Est GFR (MDRD) Af Amer Est GFR (MDRD) Non-Af 185 BUN/Creatinine Ratio 16.5 (10-20) RATIO Glucose 69 L (74-106) mg/dL Uric Acid 3.5 (2.6-6.0) mg/dL Calcium 9.3 (8.5-10.1) mg/dL Total Bilirubin 0.50 (0.20-1.00) mg/dL AST 14 L Cancelled ALT 13 Cancelled Alkaline Phosphatase 254 H (45-117) U/L Total Protein 7.1 (6.4-8.2) g/dL Albumin 3.0 L (3.2-5.0) g/dL Globulin 4.1 (2.2-4.2) g/dL Albumin/Globulin Ratio 0.7 L (0.9-2.4) RATIO U Random Total Protein 35.0 H (<11.9) mg/dL Urine Creatinine 146.00 (NO RANGE EST.) mg/dL Protein/Creatinin Ratio 240 H (0-200) mg/g CRE 05/18/24 05/18/24 05/18/24 Range/Units 11:05 11:05 11:05 WBC 8.5 (4.4-11.0) K/mm3 RBC 4.27 (4.2-5.4) M/mm3 Hgb 11.5 L (12.0-15.0) g/dL Hct 37.0 (37-47) % MCV 86.7 (81-99) fL MCH 26.9 L (27.0-32.0) pg MCHC 31.1 L (32-36) g/dL RDW Std Deviation 43.8 (35.1-43.9) fl RDW Coeff of Kendra 14.1 (11.6-14.6) % Plt Count 139 L (150-450) K/mm3 MPV 10.0 (6.2-12.0) fl Sodium 137 (136-145) mmol/L Potassium 3.5 (3.5-5.1) mmol/L Chloride 108 H (98-107) mmol/L Carbon Dioxide 23.0 (21.0-32.0) mmol/L Anion Gap 6 (5-15) BUN 7 (7-18) mg/dL Creatinine 0.42 L Cancelled Estim Creat Clear Calc 205.28 ml/min Est GFR (MDRD) Af Amer 224 Cancelled Est GFR (MDRD) Non-Af Cancelled BUN/Creatinine Ratio (10-20) RATIO Glucose (74-106) mg/dL Uric Acid (2.6-6.0) mg/dL Calcium (8.5-10.1) mg/dL Total Bilirubin (0.20-1.00) mg/dL AST ALT Alkaline Phosphatase (45-117) U/L Total Protein (6.4-8.2) g/dL Albumin (3.2-5.0) g/dL Globulin (2.2-4.2) g/dL Albumin/Globulin Ratio (0.9-2.4) RATIO U Random Total Protein (<11.9) mg/dL Urine Creatinine (NO RANGE EST.) mg/dL Protein/Creatinin Ratio (0-200) mg/g CRE Charges/Coding Procedures Urinary/Genital [id number]: [id number] non-stress test Interp Assessment & Plan (1) : QUALIFIERS: Weeks of gestation: 38 weeks Qualified Code(s): Z3A.38 - 38 weeks gestation of COMMENT: anatomy nl, Declined genetic and carrier testing;declined AFP (2) False labor: (3) Gestational thrombocytopenia:
== END 2024-05-18 13:05 | disposition home or self-care (01) ==
LOC: WPOUT 10:04 → WP 10:05
PROVIDERS: PCP Family Medicine; Referring Provider Obstetrics & Gynecology; Visit Provider Obstetrics & Gynecology
DX: O47.1 False labor at or after 37 completed weeks of gestation (principal); O99.113 Other diseases of the blood and blood-forming organs and certain disorders involving the immune mechanism complicating pregnancy, third trimester; D69.59 Other secondary thrombocytopenia; O99.891 Other specified diseases and conditions complicating pregnancy; R51.9 Headache, unspecified; Z3A.38 38 weeks gestation of pregnancy
CPT/HCPCS: 36415; 59025; 59050; 80053; 82565; 82570; 84156; 84450; 84460; 84550; 85027; 99221; G0378

== ENCOUNTER → 2024-05-20 | Outpatient (CLI) | payer OTHER, SELFPAY ==
[2024-05-20 12:59] LABS: Absolute Lymphocyte Count 1.77 X10^3/uL (0.83-4.51); Absolute Neutrophil Count 5.8 X10^3/uL (2.0-7.7); Basophil# 0.01 X10^3/uL; Basophil% 0.1 % (0-1); Eosinophils% 1.2 % (0-5); Hematocrit 35.1 % (37-47); Hemoglobin 10.9 g/dL (12.0-15.0); Lymphocyte # 1.77 X10^3/ul (0.83-4.51); Lymphocyte % 21.6 % (19-41); Mean Corp Hgb Conc 31.1 g/dL (32-36); Mean Corpuscular Hgb 27.3 pg (27.0-32.0); Mean Platelet Vol. 10.2 fl (6.2-12.0); Monocyte# 0.47 X10^3/uL; Monocyte% 5.7 % (0-10); NRBC Flagged by Analyzer 0.2 % (0-5); Neutrophil # 5.78 X10^3/uL (2.7-7.7); Neutrophil % 70.4 % (47-70); Platelet Count 138 K/mm3 (150-450); RBC Distribution Width SD 45.2 fl (35.1-43.9); Red Blood Count 3.99 M/mm3 (4.2-5.4); White Blood Count 8.2 K/mm3 (4.4-11.0)
[2024-05-20 13:29] LABS: ALB/GLOB Ratio 0.8 RATIO (0.9-2.4); AST(SGOT) 11 U/L (15-37); Alanine Aminotransfer ALT/SGPT 10 U/L (13-56); Alkaline Phosphatase 249 U/L (45-117); Anion Gap 8 (5-15); BUN 5 mg/dL (7-18); Calcium,Total 9.1 mg/dL (8.5-10.1); Chloride 109 mmol/L (98-107); Creatinine, Serum 0.46 mg/dL (0.55-1.02); EST Glomerular Filtration Rate 170 mL/min (>60); Est Glom Filt Rate - Afr Amer 206 mL/min (>60); Globulin 3.7 g/dL (2.2-4.2); Glucose 65 mg/dL (74-106); Potassium 3.8 mmol/L (3.5-5.1); Protein, Total 6.7 g/dL (6.4-8.2); Sodium Level 138 mmol/L (136-145)
[2024-05-20 17:36] LABS: Protein, Urine (Random) 17.6 mg/dL (<11.9); Protein:Creat Ratio 238 mg/g CRE (0-200)
== END | disposition home or self-care (01) ==
LOC: LAB 12:08 → LABSPEC 16:38
PROVIDERS: PCP Family Medicine; Referring Provider Obstetrics & Gynecology; Visit Provider Obstetrics & Gynecology
DX: O09.92 Supervision of high risk pregnancy, unspecified, second trimester (principal); O24.419 Gestational diabetes mellitus in pregnancy, unspecified control; O47.02 False labor before 37 completed weeks of gestation, second trimester; Z3A.00 Weeks of gestation of pregnancy not specified
CPT/HCPCS: 36415; 80053; 82570; 84156; 85025

== ENCOUNTER 2024-05-22 13:12 | Inpatient (IN) | payer OTHER, SELFPAY ==
[2024-05-22] VITALS (10 sets, daily range): BP systolic 103–131; BP diastolic 69–93; PULSE 72–93; RESP 12–20; TEMP 35.8–36.8; O2SAT 96–98; BMI 35.1
--- NOTE | 2024-05-22 12:32 | HP.PCM.OB_ITS ---
HPI - General General Date of Admission: 05/22/24 HPI Narrative RENA GRIFFIN, is a 29 F who presents Maternal Data Information TWYLA Calculator Estimated Delivery Date Method Current WG Current Estimate 05/28/24 Ultrasound #1 39w 1d Other Estimates 05/19/24 LMP (Certain) 40w 3d PFSH PFS Medical History Vaginal delivery Infertility Home Medications ?Medication ?Instructions ?Recorded ?Last Taken ?Type vits,calcium no.78-iron 1 tab PO DAILY 03/29/18 06/09/22 19:00 History fumarate-folic acid 29 mg-1 mg tablet (Prenatabs FA) blood sugar diagnostic (Blood #50 ea 03/01/24 Unknown Rx Glucose Test strips) blood-glucose meter #1 ea 03/01/24 Unknown Rx lancets (Accu-Chek Softclix #100 ea 03/01/24 Unknown Rx Lancets) lancets 28 gauge (FreeStyle #100 ea 03/07/24 Unknown Rx Lancets) blood sugar diagnostic (FreeStyle #100 ea 03/08/24 Unknown Rx Lite Strips) metformin 500 mg tablet 1,000 mg PO DAILY 05/18/24 Unknown History Allergy/AdvReac Type Severity Reaction Status Date / Time No Known Allergies Allergy Verified 05/20/24 16:05 Family History Grandmother Diabetes, Onset Age: 60 Type 2 Heart disease, Onset Age: 80 A. 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 current occupational exposures/hazards: No pets and animals: No history of recent travel: No sexually active: Yes Smoking Status: Never smoker second hand exposure: No alcohol intake: never substance use type: does not use diet: lactose free well-balanced diet: daily or most days caffeine: Yes eating out: 1-3 times/week during the past year weight has: remained stable what type of physical activity do you participate in: none tj/shinto: [employer]aritan seatbelt use: always do you feel safe at home: Yes additional social history: : Gabino Chan @ [employer] [facility] History 6 Elective abortions Hx Para 2 Spontaneous abortions 3 Hx # Term Pregnancies Ectopic pregnancies Hx # Pregnancies Multiple births # of living children 2 Past Pregnancies Del. Date Name GA/Weeks Outcome Route Bth Weight Gen Labor Lgth Anesthesia Del Locatn Provider FOB 03/30/18 Bladimir 39 live - full term vacuum 7lbs 1oz Male e pidural [facility] Dr Ren Lloyd 04/07/19 8 spontaneous 08/07/20 7 spontaneous 11/05/20 6 spontaneous 06/10/22 Kelvin 40 live - full term 7lbs 11oz Male e pidural [facility] Dr Roseanne Lloyd Delivery Date: 03/30/18 Last Updated by: Abbie Sauceda RN 2nd Degree Delivery Date: 11/05/20 Last Updated by: Abbie Sauceda RN Might have been a chemical .. only watched HCG levels trend down Delivery Date: 06/10/22 Last Updated by: Abbie Sauceda RN Borderline GDM - checked sugars (all were normal), failed 1hr, couldn't complete 3hr Visit Details Expected Delivery Route/Plan Labor Preferences- CB/BF classes: [] labor support person: [] labor intervention preferences: [] pain management options preferred: [] cut cord/dad catch: [] : [] PP control planned: [] discussed possible routes of delivery and associated risks: [] special requests: [] Plans Covid status: [] Flu vaccine: [] Tdap vaccine: through work Rhogam: na LARC form signed: declined movement and labor precautions reviewed. Problem list reviewed and updated with the most current plan of care details and appropriate orders placed. Relevant counseling for the gestational age provided. Continue routine care and follow up unless otherwise noted in visit notes/problem list details OB Flowsheet Initial Weight: Not Recorded Date -?-?-?-?-?-?-?-?-?-?-?-?- EGA Weight BP Urine Prot -?-?-?-?-?-?-?-?-?-?-?-?- Glucose FHR FuHt Pres Dilation -?-?-?-?-?-?-?-?-?-?-?-?- Effaced St Visit Note 09/28/23 -?-?-?-?-?-?-?-?-?-?-?-?- 5w 2d 212 lb 122/76 -?-?-?-?-?-?-?-?-?-?-?-?- -?-?-?-?-?-?-?-?-?-?-?-?- KW- GS measuring 4.5 weeks. JV rescanned. agrees for HCG and rescan next week. 10/05/23 -?-?-?-?-?-?-?-?-?-?-?-?- 6w 2d 209 lb 119/78 Negative -?-?-?-?-?-?-?-?-?-?-?-?- Negative 118 -?-?-?-?-?-?-?-?-?-?-?-?- KW- rescan today measuring 6 weeks 2 days. Phenergan for N/V 11/03/23 -?-?-?-?-?-?-?-?-?-?-?-?- 10w 3d 204 lb 4 oz 128/87 1+ -?-?-?-?-?-?-?-?-?-?-?-?- Negative 168 -?-?-?-?-?-?-?-?-?-?-?-?- KW- no vb/crampi ng. 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 recommended Mucinex and NS spray. FU in 2 weeks if not better or developing other sx. 12/01/23 -?-?-?-?-?-?-?-?-?-?-?-?- 14w 3d 202 lb 4 oz 138/79 Nega tive -?-?-?-?-?-?-?-?-?-?-?-?- Negative 161 -?-?-?-?-?-?-?-?-?-?-?-?- LC- no vb/crampi ng. LC- no vb/cramping. declines afp. 12/27/23 -?-?-?-?-?-?-?-?-?-?-?-?- 18w 1d 204 lb 6 oz 204 lb 139/85 Negative -?-?-?-?-?-?-?-?-?-?-?-?- Negative 156 -?-?-?-?-?-?-?-?-?-?-?-?- MH-NO VB. Thinks feeling flutters. Will get PN labs today. 01/26/24 -?-?-?-?-?-?-?-?-?-?-?-?- 22w 3d 202 lb 8 oz 132/83 Nega tive -?-?-?-?-?-?-?-?-?-?-?-?- Negative 160 25 -?-?-?-?-?-?-?-?-?-?-?-?- JV- echo today w as inconclusive for VSD. plan is to follow up after delivery. GCT ordered. 02/22/24 -?-?-?-?-?-?-?-?-?-?-?-?- 26w 2d 204 lb 139/83 Negative -?-?-?-?-?-?-?-?-?-?-?-?- Negative 165 28 -?-?-?-?-?-?-?-?-?-?-?-?- JV- no lof, vagi nal bleeding, or dec fm. plans to do gct next visit. 03/20/24 -?-?-?-?-?-?-?-?-?-?-?-?- 30w 1d 203 lb 121/77 Negative -?-?-?-?-?-?-?-?-?-?-?-?- Negative 150 31 -?-?-?-?-?-?-?-?-?-?-?-?- JV- pt go her td ap at work. fasting levels are all elevated. going to start metformin. 2 hr pp are good. JV- pt go her tdap at work. fasting levels are all elevated. going to start metformin. 2 hr pp are good. getting bpp's weekly with mfm still. 04/05/24 -?-?-?-?-?-?-?-?-?-?-?-?- 32w 3d 203 lb 2 oz 118/78 Nega tive -?-?-?-?-?-?-?-?-?-?-?-?- Negative 150 32 -?-?-?-?--?-?-?-?-?-?-?-?- SM- no vb lof go od fm no regualr ctx 04/18/24 -?-?-?-?-?-?-?-?-?-?-?-?- 34w 2d 200 lb 107/72 Negative -?-?-?-?-?-?-?-?-?-?-?-?- Negative 154 34.5 -?-?-?-?-?-?-?-?-?-?-?-?- JV- normal growt h last visit. bpp 03/14 today. glucose log is normal. no lof, vaginal bleeding, or dec fm. 05/02/24 -?-?-?-?-?-?-?-?-?-?-?-?- 36w 2d 197 lb 4 oz 121/77 Nega tive -?-?-?-?-?-?-?-?-?-?-?-?- Negative 150 26 Transverse 1 -?-?-?-?-?-?-?-?-?-?-?-?- 0 JV- gbs today. no lof, vaginal bleeding, or dec fm. transverse on exam. coming back for rpt scan on monday next week. will then decide if needs a version. 05/08/24 -?-?-?--?-?-?-?-?-?-?-?-?- 37w 1d 200 lb 128/82 Negative -?-?-?-?-?-?-?-?-?-?-?-?- Negative 140 37 Breech 1.5 -?-?-?-?-?-?-?-?-?-?-?-?- 0 SM- no v b lof good fm no reuglar ctx BS controlled, plan ECV monday05/16/24 -?-?-?-?-?-?-?-?-?-?-?-?- 38w 2d 197 lb 125/79 Negative -?-?-?-?-?-?-?-?-?-?-?-?- Negative 140 37 Cephalic 3 -?-?-?-?-?-?-?-?-?-?-?-?- 60 -1 SM- no vb lof good fm no regukar ctx iol setup 05/20/24 -?-?-?-?-?-?-?-?-?-?-?-?- 38w 6d 201 lb 135/87 Negative -?-?-?-?-?-?-?-?-?-?-?-?- Negative 138 38 Cephalic 3 -?-?-?-?-?-?-?-?-?-?-?-?- 60 -1 MH-No VB, LOF. Good Fm. Irreg CTX. No headache or vision changes currently. Plan IOL 05/22 Vital Signs Vital Signs Vital Signs: 05/22/24 11:39 05/22/24 11:39 Pulse Rate 90 Blood Pressure 125/83 H BP Systolic 125 BP Diastolic 83 Labs Labs Labs: Blood Type A POSITIVE Antibody Screen NEGATIVE Hct 35.1 % (37-47) L Hgb 10.9 g/dL (12.0-15.0) L Syphilis Total Ab Non-reactive Rubella IgG Antibody Reactive (Nonreactive) Hep Bs Antigen Non-Reactive (Nonreactive) Hepatitis C Antibody Non-Reactive (Nonreactive) Hepatitis C Ab (EIA) 0.1 s/co ratio (0.0-0.9) Chlamydia DNA (GLENIS) Negative (Negative) N.gonorrhoeae DNA (GLENIS) Negative (Negative) HIV 1&2 Antibody Non-Reactive (Nonreactive) Glucose 1 Hr 50 gm 193 mg/dL (70-140) H Gest Glucose Tolerance MG/DL Group B Strep DNA Negative (Negative) Rhogam given: Yes Miscellaneous Test Assessment & Plan (1) Gestational thrombocytopenia: (2) False labor: (3) Gestational diabetes: QUALIFIERS: Gestational diabetes mellitus control: oral hypoglycemic-controlled Trimester: third trimester Qualified Code(s): O24.415 - Gestational diabetes mellitus in , controlled by oral hypoglycemic drugs COMMENT: 1 hour was 190's metformin started 03/20/24- pt getting weekly bpp's (4) Muscular ventricular septal defect (VSD): COMMENT: of fetus. [facility] @ 10am- was inconclusive or small. plan is follow up after (5) Abnormal umbilical cord: COMMENT: type 2 hypocoiled cord. Growth US 4 q weeks and weekly BPPs at 32 weeks. (6) History of miscarriage, currently : COMMENT: x3-vaginal progesterone, decreasing. (7) Nausea & vomiting: QUALIFIERS: Vomiting type: unspecified Qualified Code(s): R11.2 - Nausea with vomiting, unspecified COMMENT: phenergine. (8) Obesity affecting : QUALIFIERS: Trimester: second trimester Obesity type affecting : unspecified obesity Qualified Code(s): O99.212 - Obesity complicating , second trimester (9) Supervision of high-risk : QUALIFIERS: Trimester: third trimester Qualified Code(s): O09.93 - Supervision of high risk , unspecified, third trimester COMMENT: PRR,, TWYLA 05/19/24, surprise PC: Elsy, : Gabino (10) : QUALIFIERS: Weeks of gestation: 38 weeks Qualified Code(s): Z3A.38 - 38 weeks gestation of COMMENT: anatomy nl, Declined genetic and carrier testing;declined AFP PLAN: Plan Patient presents IOL, plan management for with pitocin/AROM. Pain management: plans epidural. GBS negative. Management of any complications: gestational thrombocytopenia and diabetes.- diabetic protocol I have reviewed the [facility] and made any clinically relevant updates.
[2024-05-22 13:37] LABS: Absolute Lymphocyte Count 1.37 X10^3/uL (0.83-4.51); Absolute Neutrophil Count 5.7 X10^3/uL (2.0-7.7); Basophil# 0.02 X10^3/uL; Basophil% 0.3 % (0-1); Eosinophil# 0.05 X10^3/uL; Eosinophils% 0.7 % (0-5); Hematocrit 35.2 % (37-47); Hemoglobin 10.9 g/dL (12.0-15.0); Lymphocyte # 1.37 X10^3/ul (0.83-4.51); Lymphocyte % 18.1 % (19-41); Mean Corpuscular Hgb 26.8 pg (27.0-32.0); Mean Corpuscular Volume 86.7 fL (81-99); Mean Platelet Vol. 10.4 fl (6.2-12.0); Monocyte# 0.34 X10^3/uL; Monocyte% 4.5 % (0-10); NRBC Flagged by Analyzer 0 % (0-5); Neutrophil # 5.72 X10^3/uL (2.7-7.7); Neutrophil % 75.6 % (47-70); Platelet Count 135 K/mm3 (150-450); RBC Distribution Width CV 14.1 % (11.6-14.6); RBC Distribution Width SD 44.7 fl (35.1-43.9); Red Blood Count 4.06 M/mm3 (4.2-5.4); White Blood Count 7.6 K/mm3 (4.4-11.0)
--- NOTE | 2024-05-22 14:04 | PCM.PN.BLA ---
Progress Note late entry note from 1300: nurse calls with report that she can not feel a presentation. exam: bedside ultrasound shows that the head is in the right upper to mid quadrant. URIEL is 6 cm. Patient was given options for treatment that included ECV vs section. after a long discussion she has decided to proceed with section with bilateral salpingectomy. After discussing the patient's diagnosis and treatment plan options, patient wishes to proceed with surgical management. I have discussed with the patient the risks, benefits, and alternatives of the procedure which include but are not limited to risks of anesthesia, bleeding, infection, possible damage to bowel, bladder, or surrounding vasculature which could lead to additional surgery to evaluate any complications. Patient agrees to procedure and wishes to proceed.
[2024-05-22] MEDS: Lactated Ringers 1,000 ML 999 ML IV (16:32)
[2024-05-22] MEDS: 0.9% Saline Lock 10 ML Syringe IV ×2 (16:32→19:02)
[2024-05-22] MEDS: Acetaminophen 500 MG Tablet PO (16:33)
--- NOTE | 2024-05-22 18:09 | DCINST_ITS ---
Discharge Instructions Diet Discharge Diet: No restrictions Activity Discharge Activity: May Not Drive (for 2 weeks or while taking narcotic pain medications.), May Shower and May Take a Tub Bath (in 7 days.) May resume sexual activity in: 4-6 weeks Weight Bearing Status: Full weight bearing Lifting Restrictions: 20 pounds Dressing / Incision Call your doctor if your incision/area has: Continuous Slow Oozing, Sudden Increased Bleeding, Increased Pain/ Swelling, Increased Redness and Foul Smelling Discharge Call your doctor if you observe: Fever of 101 or Higher and Using more than 1 pad per hour Suture Line Care: Avoid Pulling/Pushing and Avoid Pinching/Bending Cleanse incision/area with: Soap & Water and Keep Dressing Clean & Dry Follow Up Care Please Follow Up With: Mamie Rousseau DO When: Call [phone] to make an appointment for an incision check in 1-2 weeks. Test Results: Test results from this visit will be discussed in further detail at your follow- up appointment, if applicable. Discharge Plan Admission Admit Date/Time: 05/22/24 13:12 Primary Reason for Your Visit: section Attending Provider: Mamie Rousseau Primary Care Provider: Lucie Montejo Discharge Orders/Prescriptions Prescriptions: New ibuprofen 800 mg tablet 800 mg PO Q8H PRN (Reason: pain) Qty: 30 0RF oxycodone-acetaminophen [Percocet] 5-325 mg tablet 1 tab PO Q4H PRN (Reason: pain) 7 Days Qty: 20 0RF Rx Instructions: 1-2 tabs q 4 hrs as needed for pain Discontinued metformin 500 mg tablet 1,000 mg PO DAILY No Action (DME) lancets [FreeStyle Lancets] 28 gauge misc See Rx Instructions .Route Qty: 100 3RF Rx Instructions: As directed Prenatabs FA 1 TABLET tablet 1 tab PO DAILY (DME) blood-glucose meter Misc See Rx Instructions .ROUTE .MEDSUPPLY Qty: 1 0RF Rx Instructions: As directed (DME) Blood Glucose Test Strip See Rx Instructions .ROUTE .MEDSUPPLY Qty: 50 6RF Rx Instructions: Check blood sugars Fasting and 2 hours after breakfast, lunch, and dinner. (DME) lancets [Accu-Chek Softclix Lancets] Misc See Rx Instructions .ROUTE .MEDSUPPLY Qty: 100 6RF Rx Instructions: Check blood sugars fasting and 2 hours after breakfast, lunch, and dinner. (DME) FreeStyle Lite Strips Strip See Rx Instructions .Route Qty: 100 3RF Rx Instructions: check at fasting and then 2 hours post meals, breakfast, lunch and dinner Referrals / Follow Up: Lucie Montejo MD [Primary Care Provider] - Disposition Disposition (needs filled in before D/C Order can be placed): Home, Self Care
[2024-05-22] MEDS: Lactated Ringers 1,000 ML 50 ML IV (20:58)
[2024-05-22] MEDS: Sodium Citrate/Citric Acid 30 ML UDC PO (21:07)
[2024-05-22] MEDS: Cefazolin 2 GM in 0.9% Normal Saline (100mL Bag) 100 ML IV (21:22)
--- NOTE | 2024-05-22 21:46 | PLAC_PTH ---
PATIENT: RENA GRIFFIN LOC: WP U#:[id number] AGE/SX: 29/F ROOM: WP004 RE05/22/[address]: Dr. Mamie Rousseau DO : 1995 BED: 1 DIS: 05/24/2024 SPEC #: [id number] RECD: 05/23/24 03:49 STATUS: NGA DANDRE #: [id number] GUS: 05/22/24 21:[address]: Mamie Rousseau DEPT: SURGICAL PATHOLOGY RECD BY: Rachana Calderon ENTERED: 05/23/24 07:25 SP TYPE: PLACENTA OTHR DR: Dr. Lucie Montejo MD Tissues: A - Placenta, NOS B - Fallopian tube Procedures: Surgery Specimen Level II Surgery Specimen Level V HEADER OPERATION: Primary section PRE-OP DIAGNOSIS: Protocol TISSUE SUBMITTED: A- Placenta, B- Bilateral fallopian tubes *suture on left* MICROSCOPIC DIAGNOSIS A. Placenta: Placental disc - third trimester placenta (560 gm). Membranes - no pathologic diagnosis. Umbilical cord - three blood vessels and no pathologic diagnosis. B. Bilateral fallopian tubes, salpingectomy: Bilateral fallopian tubes, no pathologic diagnosis. SJ: 05/27/2024 MICROSCOPIC DESCRIPTION Slides are reviewed. GROSS DESCRIPTION A. SPECIMEN: PLACENTA / CLINICAL INFORMATION: A. Weight: 3.08 kg B. Gestational Age:39 weeks C. Sex: Female PLACENTAL WEIGHT (POST FIXATION): 560 gm PLACENTAL DIMENSIONS: 19.0 x 16.0 x 4.0 cm PLACENTAL SHAPE: Usual ovoid PLACENTAL WEIGHT FOR GESTATIONAL AGE: Within 10-99th percentile MEMBRANES - Present A. Insertion: Marginal B. Site of rupture from edge: 11.0 cm from edge of placental disc C. Color of membrane: Glynn-dey D. Abnormalities: None UMBILICAL CORD - Present A. Color: Glynn-dey B. Insertion: Paracentral C. Length: 39.0 cm D. Diameter: 1.2 cm E. Number of vessels: Three F. Abnormalities: None PLACENTAL DISC - Present A. Color of surface: Glynn-dey B. surface abnormalities: None C. Maternal cotyledons: Intact with minimal tears D. Attached retro placental clot: No clot E. Cut surface: Dark red and spongy F. Lesions: None G. Separate clot: Absent SECTIONS SUBMITTED: (6 cassettes) 1. Membrane roll 2. Cord, maternal end 3. Cord, end 4. Placental disc, and maternal surfaces 5. Placental disc, and maternal surfaces 6. Placental disc, and maternal surfaces B. Received in fixative is one container labeled with the patient's name and designated bilateral fallopian tubes- suture in left. The specimen consists of bilateral fallopian tubes including fimbrial ends. Right fallopian tube measures 6.0cm in length and 0.6cm in diameter and left fallopian tube measures 6.0 cm in length and 1.0 cm in diameter. Sections reveal unremarkable cut surfaces. State Attorney sections are submitted in two cassettes. 1- right fallopian tube, 2- left fallopian tube. SJ: 05/24/2024 TC:4 CPT: 91645s1,27540
--- NOTE | 2024-05-22 22:11 | EX.PCM.OBRPT ---
Assessment & Plan (1) Breech presentation of fetus: (2) Gestational thrombocytopenia: (3) Gestational diabetes: QUALIFIERS: Gestational diabetes mellitus control: oral hypoglycemic-controlled Trimester: third trimester Qualified Code(s): O24.415 - Gestational diabetes mellitus in , controlled by oral hypoglycemic drugs COMMENT: 1 hour was 190's metformin started 03/20/24- pt getting weekly bpp's (4) Muscular ventricular septal defect (VSD): COMMENT: of fetus. [facility] 01/25 @ 10am- was inconclusive or small. plan is follow up after (5) Abnormal umbilical cord: COMMENT: type 2 hypocoiled cord. Growth US 4 q weeks and weekly BPPs at 32 weeks. (6) History of miscarriage, currently : COMMENT: x3-vaginal progesterone, decreasing. (7) Nausea & vomiting: QUALIFIERS: Vomiting type: unspecified Qualified Code(s): R11.2 - Nausea with vomiting, unspecified COMMENT: phenergine. (8) Obesity affecting : QUALIFIERS: Trimester: second trimester Obesity type affecting : unspecified obesity Qualified Code(s): O99.212 - Obesity complicating , second trimester (9) Supervision of high-risk : QUALIFIERS: Trimester: third trimester Qualified Code(s): O09.93 - Supervision of high risk , unspecified, third trimester COMMENT: PRR,, TWYLA 05/19/24, surprise PC: Elsy, : Gabino (10) : QUALIFIERS: Weeks of gestation: 38 weeks Qualified Code(s): Z3A.38 - 38 weeks gestation of COMMENT: anatomy nl, Declined genetic and carrier testing;declined AFP Maternal Data Information TWYLA Calculator Estimated Delivery Date Method Current WG Current Estimate 05/28/24 Ultrasound #1 39w 1d Other Estimates 05/19/24 LMP (Certain) 40w 3d Final TWYLA Source: US <20 weeks Details Operative Information Date of Procedure: 05/22/24 Pre-Operative Diagnosis: 29 y/o @ 39 weeks 1 day, breech presentation, desires permanent sterilization Post-Operative Diagnosis: 29 y/o @ 39 weeks 1 day, breech presentation, desires permanent sterilization Classification: Scheduled Procedure Type: low transverse 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 She was prepped and draped in the normal sterile fashion and was placed in a dorsal supine position with a leftward tilt. Pfannenstiel skin incision was made with a scalpel and carried through to the underlying layers. The fascia was nicked in the midline and extended laterally using Parham scissors. The anterior aspect of the fascia was grasped with Rose clamps and the underlying rectus muscles dissected off using the Metzenbaum scissors. The rectus muscles were in the midline. Peritoneum was entered sharply. The uterus was identified and a bladder blade was inserted into the abdomen. Bladder flap was created off the uterus using Metzenbaum scissors. A transverse incision was made with a scalpel and extended laterally manually. The 's feet were first to present and were gently grasped and guided out of the uterine incision. The legs and torso followed. The anterior shoulder was carefully swept across the chest. The was rotated to the opposite side and opposite arm was swept down and over the chest. The head was delivered with the help of my clerical dentist assistant using fundal pressure and also a finger in the mouth to flex the head. The mouth and nares were bulb suctioned. After a 30 second delay the cord was clamped and cut. The end was handed off to the awaiting trauma therapist for routine assessment. Placenta was delivered manually without difficulty but was noted to be bilobed and sent for pathology analysis. The uterus was exteriorized and cleared of all clots and debris. Incision was closed with an 0 Vicryl suture in a running locked fashion. Second layer of 1-0 monocryl suture was used in imbricating manner to create excellent closure and hemostasis. The right tube was grasped with a Khanh clamp and the underlying mesosalpinx was cauterized and cut with the ligasure device removing the entire tube and fimbriated end. The same procedure was performed on the opposite side. Both fallopian tubes were passed off for pathology analysis. The uterus was returned to the abdomen. The gutters were cleared of all clots and debris. The peritoneum was closed in a pursestring pattern using a 3-0 Vicryl suture. This muscle was reapproximated with a 3-0 Vicryl. The fascia was closed with a stratafix suture. Subcutaneous tissue layer was irrigated then closed using a plain gut suture. The skin was closed with a 4-0 Monocryl subcuticular stitch. The skin was also sealed with surgical glue. The patient tolerated the procedure well sponge lap and needle counts were correct at each tissue closure plane and the patient is now being brought to the recovery room in stable condition Baby girl Johanna The clerical dentist assistant in the procedure helped with retraction, fundal pressure, suture cutting and skin closure Presentation: Positive for Footling Breech Amniotic Membrane Rupture Type: Artificial Amniotic Fluid Description: Clear Placental Delivery Description: Spontaneous Placenta Disposition: Routine to Lab Cord Vessel Description: 3 Vessels Cord Entanglement: None A Gender: Female (1 minute): 9 (5 minute): 9 Delayed Cord Clamping: No Complications Complications: none Multi Select Codes Urinary/Genital Urinary/Genital CPT Codes: 72572 BS/O laparotomy and 58804 Delivery [facility]
[2024-05-22] MEDS: Oxytocin 15 Units/NS 250ml 15 UNITS/250 ML IV.SOLN 83 UNITS IV (22:37)
[2024-05-22] MEDS: Ketorolac 30 MG/ML Syringe IV (23:44)
[2024-05-22] MEDS: Acetaminophen 500 MG Tablet 1000 MG PO (23:44)
[2024-05-23] VITALS (11 sets, daily range): BP systolic 100–131; BP diastolic 56–83; PULSE 74–89; RESP 16–18; TEMP 36.3–36.6; O2SAT 97–99
[2024-05-23 03:39] LABS: Pathology Specimen OB SEE PATHOLOGY REPORT
[2024-05-23 04:21] LABS: Bedside Glucose 103 mg/dL (74-106)
[2024-05-23] MEDS: Acetaminophen 500 MG Tablet 1000 MG PO ×3 (05:50→17:54)
[2024-05-23] MEDS: Ketorolac 30 MG/ML Syringe IV ×3 (05:50→17:53)
[2024-05-23] MEDS: 0.9% Saline Lock 10 ML Syringe IV ×3 (05:51→17:55)
[2024-05-23 06:14] LABS: Bedside Glucose 88 mg/dL (74-106)
--- NOTE | 2024-05-23 06:43 | PN.OBGYN_ITS ---
Subjective Subjective Patient is laying in bed comfortably without complaints. She states that she slept on an off during the night. Lochia is mild and pain is minimal. Objective Data Objective Data Vital Signs: Vital Signs Temp Pulse Resp BP Pulse Ox O2 Del Method 97.4 F L 80 16 117/83 H 98 Room Air 05/23/24 05:58 05/23/24 05:58 05/23/24 05:58 05/23/24 05:58 05/23/24 05:58 05/23/24 05:58 Oxygen Delivery Method Room Air Weight: 198 lb 6.4 oz Body Mass Index (BMI) 35.1 Intake & Output: Intake and Output for Last 24 Hours 05/21/24 05/22/24 05/23/24 23:59 23:59 23:59 Intake Total 1150.0 / 1150.0 250 / 250 Output Total 600 / 600 550 / 550 Balance 550.0 / 550.0 -300 / -300 Lab / Micro Data 05/22/24 13:15 Labs: Laboratory Results - last 24 hr 05/22/24 13:15: WBC 7.6, RBC 4.06 L, Hgb 10.9 L, Hct 35.2 L, MCV 86.7, MCH 26.8 L, MCHC 31.0 L, RDW Std Deviation 44.7 H, RDW Coeff of Kendra 14.1, Plt Count 135 L , MPV 10.4, Immature Gran % (Auto) 0.800, Neut % (Auto) 75.6 H, Lymph % (Auto) 18.1 L, [place] % (Auto) 4.5, Eos % (Auto) 0.7, Baso % (Auto) 0.3, Absolute Neuts (auto) 5.7, Absolute Lymphs (auto) 1.37, Nucleated RBC % 0, Blood Type A POSITIVE, Antibody Screen NEGATIVE 05/22/24 14:42: POC Glucose 103 05/23/24 05:44: POC Glucose 88 ROS Constitutional Constitutional: Reports systems reviewed and no addt'l complaints, except as documented Cardiovascular Cardiovascular: Denies chest pain, dizziness, dyspnea or irregular heart rhythm Respiratory/Chest Respiratory/Chest: Denies cough, pain on inspiration or shortness of breath at rest Gastrointestinal Gastrointestinal: Denies abdominal pain, nausea or vomiting Genitourinary Genitourinary: Denies burning urination Musculoskeletal Musculoskeletal: Denies muscle cramps, muscle spasms or muscle weakness Neurologic Neurologic: Denies confusion, dizziness, headache(s) or lack of coordination Psychiatric Psychiatric: Denies anxiety, behavioral changes or depression Physical Exam HEENT normocephalic Resp normal respiratory effort and normal air movement GI soft to palpation, non-tender and non-distended Rectal Exam: other Other Details: Incision is clean, dry, and intact no CVA tenderness Extremity normal to inspection General Extremity: edema bilateral (trace ) Assessment & Plan (1) Breech presentation of fetus: (2) Status post section: PLAN: Plan s/p LTCS PPD # 1 1. routine post care 2. breast feeding- support given 3. rh positive 4. rubella immune 5. gdm- stable. no longer needs glucose levels 6. gestational thrombocytopenia. - stable but am labs pending 7. discharge planning- plan for dc to home tomorrow
[2024-05-23 07:23] LABS: Hematocrit 30.6 % (37-47); Hemoglobin 9.9 g/dL (12.0-15.0); Mean Corp Hgb Conc 32.4 g/dL (32-36); Mean Corpuscular Hgb 27.7 pg (27.0-32.0); Mean Corpuscular Volume 85.7 fL (81-99); Mean Platelet Vol. 10.2 fl (6.2-12.0); Platelet Count 119 K/mm3 (150-450); RBC Distribution Width CV 14.3 % (11.6-14.6); RBC Distribution Width SD 44.5 fl (35.1-43.9); Red Blood Count 3.57 M/mm3 (4.2-5.4); White Blood Count 10.1 K/mm3 (4.4-11.0)
[2024-05-23] MEDS: Senna/Docusate Sodium 1 Tablet PO (11:29)
[2024-05-23 21:47] LABS: Pathology Specimen OB SEE PATHOLOGY REPORT
[2024-05-24] MEDS: Ibuprofen 600 MG Tablet PO ×2 (00:56→06:24)
[2024-05-24] MEDS: Acetaminophen 500 MG Tablet 1000 MG PO ×2 (00:56→06:24)
[2024-05-24 01:54] VITALS: BP 125/83; PULSE 88; RESP 16; TEMP 36.6; O2SAT 97
[2024-05-24 08:08] VITALS: BP 129/83; PULSE 80; RESP 16; TEMP 36.4; O2SAT 100
[2024-05-24] MEDS: Senna/Docusate Sodium 1 Tablet PO (08:18)
--- NOTE | 2024-05-24 08:36 | PCM.PN.CNM ---
Subjective Subjective Patient doing well without complaints. Tolerating PO. Ambulating and voiding without difficulty. Feeding well. Denies chest pain, shortness of breath, calf pain/swelling, fevers, chills, lightheadedness. Objective Data Objective Data Vital Signs: Vital Signs Temp Pulse Resp BP Pulse Ox O2 Del Method 97.5 F L 80 16 129/83 H 100 Room Air 05/24/24 08:08 05/24/24 08:08 05/24/24 08:08 05/24/24 08:08 05/24/24 08:08 05/24/24 08:08 Oxygen Delivery Method Room Air Weight: 198 lb 6.4 oz Body Mass Index (BMI) 35.1 Intake & Output: Intake and Output for Last 24 Hours 05/22/24 05/23/24 05/24/24 23:59 23:59 23:59 Intake Total 1150.0 / 1150.0 250 / 250 Output Total 600 / 600 1950 / 1950 Balance 550.0 / 550.0 -1700 / -1700 Lab / Micro Data 05/23/24 07:12 Labs: Laboratory Results - last 24 hr 05/22/24 13:15: Syphilis Total Ab Cancelled Physical Exam Const alert and oriented x3 HEENT normocephalic Resp normal respiratory effort and normal air movement GI soft to palpation, non-tender and non-distended Rectal Exam: other Other Details: Incision is clean, dry, and intact no CVA tenderness Extremity normal to inspection General Extremity: edema bilateral (trace ) Assessment & Plan (1) Status post section: COMMENT: primary c/s breech. (2) Gestational thrombocytopenia: (3) Gestational diabetes: QUALIFIERS: Gestational diabetes mellitus control: oral hypoglycemic-controlled Trimester: third trimester Qualified Code(s): O24.415 - Gestational diabetes mellitus in , controlled by oral hypoglycemic drugs COMMENT: stable. no longer obtaining glucose. obtain 6 week pp glucola PLAN: Plan s/p LTCS PPD # 2 1. routine post care 2. breast feeding- support given 3. rh positive 4. rubella immune 5. dc home today
--- NOTE | 2024-05-24 08:39 | PCM.DC.SUM ---
Providers Date of Admission: 05/22/24 Primary Care Physician: Dr. Lucie Montejo MD Reason For Visit: PRIMARY C SECTION Diagnosis Discharge Diagnosis (1) Status post section: Status: Acute Code(s): Z98.891 - History of uterine scar from previous surgery (2) Gestational thrombocytopenia: Status: Acute Code(s): O99.119 - Other diseases of the blood and blood-forming organs and certain disorders involving the immune mechanism complicating , unspecified trimester; D69.6 - Thrombocytopenia, unspecified (3) Gestational diabetes: Status: Acute Code(s): O24.419 - Gestational diabetes mellitus in , unspecified control Qualifiers: Gestational diabetes mellitus control: oral hypoglycemic-controlled Trimester: third trimester Qualified Code(s): O24.415 - Gestational diabetes mellitus in , controlled by oral hypoglycemic drugs Plan s/p LTCS PPD # 2 1. routine post care 2. breast feeding- support given 3. rh positive 4. rubella immune 5. dc home today Medications at Discharge Home Medications vits,calcium no.78-iron fumarate-folic acid 29 mg-1 mg tablet (Prenatabs FA) 1 tab PO DAILY 03/29/18 blood sugar diagnostic (Blood Glucose Test strips) #50 ea 03/01/24 blood-glucose meter #1 ea 03/01/24 lancets (Accu-Chek Softclix Lancets) #100 ea 03/01/24 lancets 28 gauge (FreeStyle Lancets) #100 ea 03/07/24 blood sugar diagnostic (FreeStyle Lite Strips) #100 ea 03/08/24 ibuprofen 800 mg tablet 800 mg PO Q8H PRN pain #30 tabs 05/22/24 oxycodone-acetaminophen 5 mg-325 mg tablet (Percocet) 1 tab PO Q4H PRN pain 7 days #20 tabs 05/22/24 Hospital Course Operations section Procedures None Physical Exam Const alert and oriented x3 HEENT normocephalic Resp normal respiratory effort and normal air movement GI soft to palpation, non-tender and non-distended Rectal Exam: other Other Details: Incision is clean, dry, and intact no CVA tenderness Extremity normal to inspection General Extremity: edema bilateral (trace ) Weight / BMI Weight Weight: 198 lb 6.4 oz Body Mass Index (BMI) 35.1 ABG / Lab / Microbiology Data 05/23/24 07:12 Laboratory: Laboratory Results - last 24 hr 05/22/24 13:15: Syphilis Total Ab Cancelled D/C Instructions Discharge Diet: No restrictions May resume sexual activity in: 4-6 weeks Weight Bearing Status: Full weight bearing Call your doctor if your incision/area has: Continuous Slow Oozing, Sudden Increased Bleeding, Increased Pain/ Swelling, Increased Redness and Foul Smelling Discharge Call your doctor if you observe: Fever of 101 or Higher and Using more than 1 pad per hour Suture Line Care: Avoid Pulling/Pushing and Avoid Pinching/Bending Cleanse incision/area with: Soap & Water and Keep Dressing Clean & Dry Please Follow Up With: Mamie Rousseau DO When: Call [phone] to make an appointment for an incision check in 1-2 weeks. Meaningful Use Info Meaningful Use Meaningful Use Diagnoses (Choose all that apply): None applicable Ischemic Stroke Statin Dosing Therapy Reference: STATIN DOSE THERAPY REFERENCE: * Patients > 75 years receive moderate or high dose statin therapy. * Patients 75 years or YOUNGER should receive HIGH intensity statin dose unless contraindicated. You will be required to document reason for non-treatment if statin daily dose does not meet guidelines. HIGH DOSE STATIN THERAPY DAILY Atorvastatin > than or = to 40 mg Rosuvastatin > than or = to 20 mg Amlodipine + Atorvastatin > than or = to 2.5/40 mg Ezetimibe + Simvastatin 10/80 mg Simvastatin 80mg Discharge Plan Admission Admit Date/Time: 05/22/24 13:12 Primary Reason for Your Visit: section Attending Provider: Mamie Rousseau Primary Care Provider: Lucie Montejo Instructions Patient Instructions: After a Discharge Orders/Prescriptions Prescriptions: New ibuprofen 800 mg tablet 800 mg PO Q8H PRN (Reason: pain) Qty: 30 0RF oxycodone-acetaminophen [Percocet] 5-325 mg tablet 1 tab PO Q4H PRN (Reason: pain) 7 Days Qty: 20 0RF Rx Instructions: 1-2 tabs q 4 hrs as needed for pain Discontinued metformin 500 mg tablet 1,000 mg PO DAILY No Action (DME) lancets [FreeStyle Lancets] 28 gauge misc See Rx Instructions .Route Qty: 100 3RF Rx Instructions: As directed Prenatabs FA 1 TABLET tablet 1 tab PO DAILY (DME) blood-glucose meter Misc See Rx Instructions .ROUTE .MEDSUPPLY Qty: 1 0RF Rx Instructions: As directed (DME) Blood Glucose Test Strip See Rx Instructions .ROUTE .MEDSUPPLY Qty: 50 6RF Rx Instructions: Check blood sugars Fasting and 2 hours after breakfast, lunch, and dinner. (DME) lancets [Accu-Chek Softclix Lancets] Misc See Rx Instructions .ROUTE .MEDSUPPLY Qty: 100 6RF Rx Instructions: Check blood sugars fasting and 2 hours after breakfast, lunch, and dinner. (DME) FreeStyle Lite Strips Strip See Rx Instructions .Route Qty: 100 3RF Rx Instructions: check at fasting and then 2 hours post meals, breakfast, lunch and dinner Referrals / Follow Up: Lucie Montejo MD [Primary Care Provider] - Disposition Disposition (needs filled in before D/C Order can be placed): Home, Self Care
[2024-05-28 17:07] LABS: Syphilis Antibodies Non Reactive (Non Reactive)
--- NOTE | 2024-05-31 13:46 | NURSING ---
F/up phone call performed. Pt. denies s+s of complications. has been going well. Pt. reports this infant has been her easiest to nurse. Family denies questions or concerns while on the phone today. Encouragement and support given.
== END 2024-05-24 10:00 | disposition home or self-care (01) | DRG 784 ==
PROVIDERS: Admitting Provider Obstetrics & Gynecology; PCP Family Medicine; Referring Provider Obstetrics & Gynecology; Visit Provider Obstetrics & Gynecology
DX: O32.8XX0 Maternal care for other malpresentation of fetus, not applicable or unspecified (principal); O99.12 Other diseases of the blood and blood-forming organs and certain disorders involving the immune mechanism complicating childbirth; O35.8XX0 Maternal care for other (suspected) fetal abnormality and damage, not applicable or unspecified; D69.59 Other secondary thrombocytopenia; O24.425 Gestational diabetes mellitus in childbirth, controlled by oral hypoglycemic drugs; O99.214 Obesity complicating childbirth; O26.23 Pregnancy care for patient with recurrent pregnancy loss, third trimester; O69.89X0 Labor and delivery complicated by other cord complications, not applicable or unspecified; Z37.0 Single live birth; Z3A.38 38 weeks gestation of pregnancy; Z30.2 Encounter for sterilization; Z87.59 Personal history of other complications of pregnancy, childbirth and the puerperium
CPT/HCPCS: 59025; 59050; 82962; 85025; 85027; 86780; 86850; 86900; 86901; 88302; 88307; 99221; J7120; A4216; G0378

== ENCOUNTER → 2024-06-03 | Outpatient (CLI) | payer OTHER, SELFPAY ==
[2024-06-03 12:17] LABS: Absolute Lymphocyte Count 1.81 X10^3/uL (0.83-4.51); Absolute Neutrophil Count 6.3 X10^3/uL (2.0-7.7); Basophil# 0.03 X10^3/uL; Basophil% 0.3 % (0-1); Eosinophil# 0.23 X10^3/uL; Eosinophils% 2.5 % (0-5); Hematocrit 39.1 % (37-47); Hemoglobin 11.6 g/dL (12.0-15.0); Lymphocyte # 1.81 X10^3/ul (0.83-4.51); Lymphocyte % 19.9 % (19-41); Mean Corp Hgb Conc 29.7 g/dL (32-36); Mean Corpuscular Hgb 26.2 pg (27.0-32.0); Mean Corpuscular Volume 88.5 fL (81-99); Mean Platelet Vol. 9.4 fl (6.2-12.0); Monocyte# 0.66 X10^3/uL; Monocyte% 7.3 % (0-10); NRBC Flagged by Analyzer 0 % (0-5); Neutrophil % 69.3 % (47-70); Platelet Count 247 K/mm3 (150-450); RBC Distribution Width SD 48.8 fl (35.1-43.9); Red Blood Count 4.42 M/mm3 (4.2-5.4); White Blood Count 9.1 K/mm3 (4.4-11.0)
== END | disposition home or self-care (01) ==
LOC: WOBLAB 11:17
PROVIDERS: PCP Family Medicine; Referring Provider Nurse Practitioner Women's Health; Visit Provider Nurse Practitioner Women's Health
DX: O99.119 Other diseases of the blood and blood-forming organs and certain disorders involving the immune mechanism complicating pregnancy, unspecified trimester (principal); D69.59 Other secondary thrombocytopenia; Z3A.00 Weeks of gestation of pregnancy not specified
CPT/HCPCS: 36415; 85025

== ENCOUNTER → 2024-11-12 | Outpatient (CLI) | payer OTHER, SELFPAY ==
[2024-11-12 12:08] LABS: Absolute Lymphocyte Count 2.76 X10^3/uL (0.83-4.51); Absolute Neutrophil Count 5.5 X10^3/uL (2.0-7.7); Basophil# 0.05 X10^3/uL; Basophil% 0.5 % (0-1); Eosinophil# 0.34 X10^3/uL; Eosinophils% 3.7 % (0-5); Hemoglobin 14.6 g/dL (12.0-15.0); Lymphocyte # 2.76 X10^3/ul (0.83-4.51); Lymphocyte % 30.3 % (19-41); Mean Corp Hgb Conc 32.4 g/dL (32-36); Mean Corpuscular Hgb 29.6 pg (27.0-32.0); Mean Corpuscular Volume 91.1 fL (81-99); Mean Platelet Vol. 10.5 fl (6.2-12.0); Monocyte# 0.41 X10^3/uL; Monocyte% 4.5 % (0-10); NRBC Flagged by Analyzer 0 % (0-5); Neutrophil % 60.5 % (47-70); Platelet Count 251 K/mm3 (150-450); RBC Distribution Width SD 39.7 fl (35.1-43.9); Red Blood Count 4.94 M/mm3 (4.2-5.4); White Blood Count 9.1 K/mm3 (4.4-11.0)
[2024-11-12 12:38] LABS: hCG Titer Quant., Serum < 1 mIU/mL (<9 non-preg)
[2024-11-13 08:09] LABS: Thyroid Peroxidase AB 10 IU/mL (0-34)
== END | disposition home or self-care (01) ==
PROVIDERS: PCP Family Medicine; Referring Provider Nurse Practitioner Women's Health; Visit Provider Nurse Practitioner Women's Health
DX: Z13.29 Encounter for screening for other suspected endocrine disorder (principal); N93.9 Abnormal uterine and vaginal bleeding, unspecified
CPT/HCPCS: 36415; 84439; 84443; 84702; 85025; 86376

== ENCOUNTER → 2024-11-22 | Outpatient (CLI) | payer OTHER, SELFPAY ==
--- NOTE | 2024-11-22 14:17 | US_ITS ---
PROCEDURE: PELVIC W/transabdominal and transvaginal TRANSVAGINAL 11/22/2024 REASON FOR EXAM: AUB six-months ago. TECHNIQUE: Transabdominal pelvic ultrasound COMPARISON: None FINDINGS: Measurements: Uterus: 8.3 cm x 5.8 cm x 5.5 cm with a volume of 139 mL Endometrial Thickness: 6.9 mm. It is hyperechoic. Nabothian cyst is seen. Right Ovary: 4.8 cm x 2.5 cm x 2.2 cm with a volume of 14.07 mL. Left Ovary: 3.5 cm x 2.8 cm x 1.3 cm with a volume of 6.77 mL. Uterus: Coarse echotexture of the myometrium suggestive of fibroid change although no focal fibroid is seen. Endometrium: 6.9 mm. Right ovary: Unremarkable Left ovary: Unremarkable Other: US/Pelvic w/ Transvaginal IMPRESSION: Fibroid change although no focal fibroid is seen. Reading Location: [id number]
== END | disposition home or self-care (01) ==
LOC: US 14:16
PROVIDERS: PCP Family Medicine; Referring Provider Nurse Practitioner Women's Health; Visit Provider Nurse Practitioner Women's Health
DX: N93.9 Abnormal uterine and vaginal bleeding, unspecified (principal)
CPT/HCPCS: 76830; 76856